=== PATIENT | male | born 1990 | race Caucasian/White ===

== ENCOUNTER 2018-03-29 12:04 | Day surgery (SDC) | payer OTHER ==
[2018-03-29] MEDS ORDERED: SOD CHLORIDE 0.9% 1,000 ML IV (13:00)
[2018-03-29] MEDS ORDERED: FENTAnyl 50 MCG/ML VIAL (15:11)
[2018-03-29] MEDS: CEFAZOLIN 2 GM/50 ML (PMX) 50 ML IVPB (15:15)
[2018-03-29] MEDS ORDERED: CEFAZOLIN 1 GM INJ (15:21)
[2018-03-29] MEDS ORDERED: PROPOFOL 20 ML (15:21)
[2018-03-29] MEDS ORDERED: LIDOCAINE 2% (SDV) 5 ML INJ (15:21)
[2018-03-29] MEDS ORDERED: ONDANSETRON 4 MG INJ IV (15:30)
[2018-03-29] MEDS ORDERED: MIDAZOLAM 1 MG/ML 2 ML INJ IV (15:30)
[2018-03-29] MEDS ORDERED: hydrALAzine 20 MG INJ IV (15:30)
[2018-03-29] MEDS ORDERED: OXYCODONE/ACETAMINOPHEN (5/325) TAB PO ×2 (15:30)
[2018-03-29] MEDS ORDERED: ALBUTEROL 0.083% (NEB) 2.5 MG/3 ML AMP HHN (15:30)
[2018-03-29] MEDS ORDERED: FENTAnyl 50 MCG/ML VIAL IV ×3 (15:30)
[2018-03-29] MEDS ORDERED: MEPERIDINE 25 MG INJ IV (15:30)
[2018-03-29] MEDS ORDERED: DIPHENHYDRAMINE 50 MG INJ IV (15:30)
[2018-03-29] MEDS ORDERED: LABETALOL HCL 20MG INJ IV (15:30)
[2018-03-29] MEDS ORDERED: EPHEDrine SULFATE 50 MG/5 ML SYG IV (15:30)
[2018-03-29] MEDS ORDERED: HYDROmorphONE 1 MG/5 ML IV SYRINGE IV ×3 (15:30)
[2018-03-29] MEDS: BUPIVACAINE 0.25% (MPF) 30 ML INJ (15:34)
[2018-03-29] MEDS ORDERED: BACITRACIN 0.9 GM OINT (15:37)
[2018-03-29] MEDS: HYDROCODONE/APAP (5/325) TAB PO (16:45)
== END 2018-03-29 17:28 | disposition home or self-care (01) ==
LOC: SDS 12:04
DX: L72.11 Pilar cyst (principal)
CPT/HCPCS: 14020; 88307